=== PATIENT | female | born 1935 | race Caucasian/White ===

== ENCOUNTER 2022-05-14 21:06 | Emergency (ER) | payer BC ==
[~2022-05-14] VITALS: Ht 162.6 cm; Wt 85.0 kg
[2022-05-14 21:18] VITALS: BP 156/55
--- NOTE | 2022-05-14 22:30 | NUR ---
Patient informed registration that they were going home.
== END 2022-05-14 22:53 | disposition left against medical advice (07) ==
LOC: ER 21:08
DX: M79.605 Pain in left leg (principal); Z53.21 Procedure and treatment not carried out due to patient leaving prior to being seen by health care provider